=== PATIENT | male | born 1950 | race Caucasian/White ===

== ENCOUNTER 2019-01-23 07:42 | Day surgery (SDC) | payer MEDICARE, BC ==
[~2019-01-23 07:42] MED LIST: Lidocaine 1% PF 2 ML SDV INJECT SCH; Pilocarpine 4% Ophth Soln 15 ML Bot EYELF SCH
[2019-01-23] MEDS: Polymyxin B/Trimethoprim 10 ML Bottle EYELF SCH ×3 (09:10→11:09)
[2019-01-23] MEDS: Brimonidine 0.2% Ophth Soln 5 ML Bottle EYELF SCH ×3 (09:15→11:08)
[2019-01-23] MEDS: Phenylephrine 2.5% Ophth Soln 2 ML Bot EYELF SCH ×5 (09:20→10:46)
[2019-01-23] MEDS: Tropicamide 1% Ophth Soln 15 ML Bottle EYELF SCH ×5 (09:25→10:15)
--- NOTE | 2019-01-23 10:01 | PCM.PREANE ---
Preanesthetic Assessment - Procedure Proposed Procedure: left cataract - Anesthesia/Transfusion/Family Hx Anesthesia History: Prior Anesthesia Without Reaction Family History of Anesthesia Reaction: No Transfusion History: No Prior Transfusion(s) - Review of Systems General: No Symptoms Pulmonary: No Symptoms Cardiovascular: No Symptoms Gastrointestinal: No Symptoms Neurological: No Symptoms Other: Reports: Anxiety - Physical Assessment NPO Status Date: 01/22/19 NPO Status Time: 21:00 Vital Signs: Last Vital Signs Temp 97.3 F 01/23/19 09:00 Pulse 59 L 01/23/19 09:00 Resp 16 01/23/19 09:00 BP 148/83 H 01/23/19 09:00 Pulse Ox 99 01/23/19 09:00 Height: 5 ft 9 in Weight: 79.832 kg ASA Class: 2 Mental Status: Alert & Oriented x3 Airway Class: Mallampati = 1 Dentition: Reports: Normal Dentition Thyro-Mental Finger Breadths: 3 Mouth Opening Finger Breadths: 3 ROM/Head Extension: Full Lungs: Clear to Auscultation, Normal Respiratory Effort Cardiovascular: Regular Rate, Regular Rhythm - Allergies Allergies/Adverse Reactions: Allergies Allergy/AdvReac Type Severity Reaction Status Date / Time No Known Allergies Allergy Verified 01/22/19 12:29 - Blood Blood Available: No - Acknowledgements Anesthesia Type Planned: MAC Pt an Appropriate Candidate for the Planned Anesthesia: Yes Alternatives and Risks of Anesthesia Discussed w Pt/Guardian: Yes Pt/Guardian Understands and Agrees with Anesthesia Plan: Yes PreAnesthesia Questionnaire Cardiovascular History: Reports: High Cholesterol Respiratory History: Reports: Other (See Below) (allergic to dust) Gastrointestinal History: Reports: None - SUBSTANCE USE Smoking Status *Q: Former Smoker Tobacco Use Within Last Twelve Months: No Second Hand Smoke Exposure: No Days Per Week of Alcohol Use: 0 Recreational Drug Use History: No - HOME MEDS Home Medications: Home Meds Dextran 70/Hypromellose [Artificial Tears] 1 drop OP ASDIRECTED PRN 01/22/19 [ History] FLUoxetine HCl [Prozac] 20 mg PO DAILY 01/22/19 [History] Simvastatin [Zocor] 40 mg PO DAILY 01/22/19 [History] - CURRENT (IN HOUSE) MEDS Current Meds: Current Medications Brimonidine Tartrate (Alphagan 0.2% [facility]) 0 ml EYELF ASDIRECTED SUSHANT Stop: 01/23/19 18:00 Last Admin: 01/23/19 09:55 Dose: 1 drop Cefuroxime Sodium (Zinacef) 0 mg EYELF ASDIRECTED SUSHANT Stop: 01/23/19 18:00 Lidocaine HCl (Xylocaine-Mpf 1%) 0 ml INJECT ASDIRECTED SUSHANT Stop: 01/23/19 18:00 Phenylephrine HCl (James-Synephrine 2.5% Ophth Soln) 0 ml EYELF ASDIRECTED SUSHANT Stop: 01/23/19 18:00 Last Admin: 01/23/19 09:40 Dose: 1 drop Pilocarpine HCl (Pilocar 4% Ophth Soln) 0 ml EYELF ASDIRECTED SUSHANT Stop: 01/23/19 18:00 Polymyxin/Trimethoprim Sulfate (Polytrim Ophth Soln) 0 ml EYELF ASDIRECTED SUSHANT Stop: 01/23/19 18:00 Last Admin: 01/23/19 09:50 Dose: 1 drop Tetracaine HCl (Tetracaine 0.5% Steri-Unit Tami) 0 ml EYELF ASDIRECTED SUSHANT Stop: 01/23/19 18:00 Tropicamide (Mydriacyl 1% Ophth Soln) 0 ml EYELF ASDIRECTED SUSHANT Stop: 01/23/19 18:00 Last Admin: 01/23/19 09:45 Dose: 1 drop
[2019-01-23] MEDS: Cefuroxime 10 MG/ML SYRINGE EYELF SCH ×2 (10:07→11:07)
[2019-01-23] MEDS: Tetracaine HCl/PF 0.5% 4 ML Bottle EYELF SCH ×4 (10:10→10:56)
--- NOTE | 2019-01-23 11:07 | PCM48HPAN ---
Post Anesthesia Note - EVALUATION WITHIN 48HRS OF ANESTHETIC Vital Signs in Normal Range: Yes Patient Participated in Evaluation: Yes Respiratory Function Stable: Yes Airway Patent: Yes Cardiovascular Function Stable: Yes Hydration Status Stable: Yes Pain Control Satisfactory: Yes Nausea and Vomiting Control Satisfactory: Yes Mental Status Recovered: Yes Vital Signs: Last Vital Signs Temp 36.3 C 01/23/19 09:00 Pulse 59 L 01/23/19 09:00 Resp 16 01/23/19 09:00 BP 148/83 H 01/23/19 09:00 Pulse Ox 99 01/23/19 09:00
== END 2019-01-23 11:25 | disposition home or self-care (01) ==
LOC: JD.SDS 07:42
PROVIDERS: ATTEND Ophthalmology
DX: H25.813 Combined forms of age-related cataract, bilateral (principal); H16.103 Unspecified superficial keratitis, bilateral; H16.223 Keratoconjunctivitis sicca, not specified as Sjogren's, bilateral; H01.02B Squamous blepharitis left eye, upper and lower eyelids; H01.02A Squamous blepharitis right eye, upper and lower eyelids; H02.88B Meibomian gland dysfunction left eye, upper and lower eyelids; H02.88A Meibomian gland dysfunction right eye, upper and lower eyelids; H40.003 Preglaucoma, unspecified, bilateral; J45.909 Unspecified asthma, uncomplicated; F41.9 Anxiety disorder, unspecified; Z79.899 Other long term (current) drug therapy; E78.00 Pure hypercholesterolemia, unspecified; Z87.891 Personal history of nicotine dependence
CPT/HCPCS: 66984; J0697; J2001; V2632

== ENCOUNTER 2019-02-25 07:27 | Day surgery (SDC) | payer MEDICARE, BC ==
[~2019-02-25 07:27] MED LIST changes: +Cefuroxime 10 MG/ML SYRINGE EYERT SCH; -Pilocarpine 4% Ophth Soln 15 ML Bot EYELF SCH; +Pilocarpine 4% Ophth Soln 15 ML Bot EYERT SCH
[2019-02-25] MEDS: Polymyxin B/Trimethoprim 10 ML Bottle EYERT SCH ×3 (08:35→10:54)
[2019-02-25] MEDS: Brimonidine 0.2% Ophth Soln 5 ML Bottle EYERT SCH ×3 (08:38→10:54)
--- NOTE | 2019-02-25 08:42 | PCM.PREANE ---
Preanesthetic Assessment - Procedure Proposed Procedure: cataract extraction right eye with IOL - Anesthesia/Transfusion/Family Hx Anesthesia History: Prior Anesthesia Without Reaction Family History of Anesthesia Reaction: No Transfusion History: No Prior Transfusion(s) - Review of Systems General: No Symptoms Pulmonary: No Symptoms Cardiovascular: No Symptoms Gastrointestinal: No Symptoms Neurological: No Symptoms Other: Reports: None - Physical Assessment NPO Status Date: 02/24/19 NPO Status Time: 21:00 Vital Signs: Last Vital Signs Temp 36.6 C 02/25/19 07:45 Pulse 58 L 02/25/19 07:45 Resp 18 02/25/19 07:45 BP 133/86 02/25/19 07:45 Pulse Ox 99 02/25/19 07:45 Height: 1.75 m Weight: 78.925 kg ASA Class: 2 Mental Status: Alert & Oriented x3 Airway Class: Mallampati = 1 Dentition: Reports: Caries Thyro-Mental Finger Breadths: 3 Mouth Opening Finger Breadths: 3 ROM/Head Extension: Full Lungs: Clear to Auscultation, Normal Respiratory Effort Cardiovascular: Regular Rate, Regular Rhythm - Allergies Allergies/Adverse Reactions: Allergies Allergy/AdvReac Type Severity Reaction Status Date / Time No Known Allergies Allergy Verified 02/20/19 11:41 - Blood Blood Available: No Product(s) Available: None - Anesthesia Plan Pre-Op Medication Ordered: None - Acknowledgements Anesthesia Type Planned: MAC Pt an Appropriate Candidate for the Planned Anesthesia: Yes Alternatives and Risks of Anesthesia Discussed w Pt/Guardian: Yes Pt/Guardian Understands and Agrees with Anesthesia Plan: Yes PreAnesthesia Questionnaire Cardiovascular History: Reports: High Cholesterol Respiratory History: Reports: Other (See Below) (allergic to dust) Gastrointestinal History: Reports: None - HOME MEDS Home Medications: Home Meds Dextran 70/Hypromellose [Artificial Tears] 1 drop OP ASDIRECTED PRN 01/22/19 [ History] FLUoxetine HCl [Prozac] 20 mg PO DAILY 01/22/19 [History] Simvastatin [Zocor] 40 mg PO DAILY 01/22/19 [History] - CURRENT (IN HOUSE) MEDS Current Meds: Current Medications Brimonidine Tartrate (Alphagan 0.2% Ophth Soln) 0 ml EYERT ASDIRECTED SUSHANT Stop: 02/25/19 18:00 Cefuroxime Sodium (Zinacef) 0 mg EYERT ASDIRECTED SUSHANT Stop: 02/25/19 18:00 Lidocaine HCl (Xylocaine-Mpf 1%) 1 ml INJECT ASDIRECTED SUSHANT Stop: 02/25/19 18:00 Phenylephrine HCl (James-Synephrine 2.5% Ophth Soln) 0 ml EYERT ASDIRECTED SUSHANT Stop: 02/25/19 18:00 Pilocarpine HCl (Pilocar 4% Ophth Soln) 0 ml EYERT ASDIRECTED SUSHANT Stop: 02/25/19 18:00 Polymyxin/Trimethoprim Sulfate (Polytrim Ophth Soln) 0 ml EYERT ASDIRECTED SUSHANT Stop: 02/25/19 18:00 Last Admin: 02/25/19 08:35 Dose: 1 drop Tetracaine HCl (Tetracaine 0.5% Steri-Unit Tami) 0 ml EYERT ASDIRECTED SUSHANT Stop: 02/25/19 18:00 Tropicamide (Mydriacyl 1% Ophth Soln) 0 ml EYERT ASDIRECTED SUSHANT Stop: 02/25/19 18:00
[2019-02-25] MEDS: Phenylephrine 2.5% Ophth Soln 2 ML Bot EYERT SCH ×5 (08:43→10:41)
[2019-02-25] MEDS: Tropicamide 1% Ophth Soln 15 ML Bottle EYERT SCH ×4 (08:48→09:30)
[2019-02-25] MEDS: Tetracaine HCl/PF 0.5% 4 ML Bottle EYERT SCH ×4 (09:50→10:45)
--- NOTE | 2019-02-25 10:56 | PCM48HPAN ---
Post Anesthesia Note - EVALUATION WITHIN 48HRS OF ANESTHETIC Vital Signs in Normal Range: Yes Patient Participated in Evaluation: Yes Respiratory Function Stable: Yes Airway Patent: Yes Cardiovascular Function Stable: Yes Hydration Status Stable: Yes Pain Control Satisfactory: Yes Nausea and Vomiting Control Satisfactory: Yes Mental Status Recovered: Yes Vital Signs: Last Vital Signs Temp 36.6 C 02/25/19 07:45 Pulse 58 L 02/25/19 07:45 Resp 18 02/25/19 07:45 BP 133/86 02/25/19 07:45 Pulse Ox 99 02/25/19 07:45
== END 2019-02-25 11:05 | disposition home or self-care (01) ==
LOC: JD.SDS 07:27
PROVIDERS: ATTEND Ophthalmology
DX: H25.811 Combined forms of age-related cataract, right eye (principal); J45.909 Unspecified asthma, uncomplicated
CPT/HCPCS: 66984; J0697; J2001; V2632